=== PATIENT | female | born 1945 ===

== ENCOUNTER → 2018-02-23 | Day surgery (SDC) | payer OTHER | END | disposition home or self-care (01) | LOC: ADM 02-18 11:00 → AMB-ENDOS 06:57 | DX: K57.32 Diverticulitis of large intestine without perforation or abscess without bleeding (principal) ==

== ENCOUNTER 2021-03-27 11:00 | Emergency (ER) | payer OTHER ==
[~2021-03-27] VITALS: Ht 162.6 cm; Wt 72.6 kg
[2021-03-27] MEDS ORDERED: CRESTOR20 MG PO (11:07)
[2021-03-27] MEDS ORDERED: HUMALOG100 UNIT/2 (11:08)
[2021-03-27] MEDS ORDERED: VASOTEC20 M1 PO (11:08)
== END 2021-03-27 13:55 | disposition home or self-care (01) ==
LOC: ER 11:00
DX: S00.03XA Contusion of scalp, initial encounter (principal); M54.2 Cervicalgia; M62.838 Other muscle spasm; W01.198A Fall on same level from slipping, tripping and stumbling with subsequent striking against other object, initial encounter; Y93.E9 Activity, other interior property and clothing maintenance; Y92.018 Other place in single-family (private) house as the place of occurrence of the external cause; Y99.8 Other external cause status

== ENCOUNTER 2022-03-18 06:53 | Day surgery (SDC) | payer OTHER ==
[~2022-03-18 06:53] MED LIST: CRESTOR20 MG PO; HUMALOG100 UNIT/2; VASOTEC20 M1 PO
== END 2022-03-18 11:20 | disposition home or self-care (01) ==
LOC: AMB-ENDOS 06:53
PROVIDERS: ATTEND Colon & Rectal Surgery
DX: K63.5 Polyp of colon (principal); K57.90 Diverticulosis of intestine, part unspecified, without perforation or abscess without bleeding; I10 Essential (primary) hypertension; E11.9 Type 2 diabetes mellitus without complications; Z79.4 Long term (current) use of insulin; Z88.8 Allergy status to other drugs, medicaments and biological substances

== ENCOUNTER 2023-12-22 06:00 | Day surgery (SDC) | payer OTHER ==
[2023-12-22] MEDS ORDERED: FLUMAZENIL 0.5 MG/5 ML ML IV STA (08:29)
[2023-12-22] MEDS ORDERED: DIPHENHYDRAMINE HCL 50 MG/ML VIAL 1ML IV ONE (08:30)
[2023-12-22] MEDS ORDERED: ONDANSETRON HCL 2 MG/ML VIAL IV ONE (08:30)
[2023-12-22] MEDS ORDERED: MIDAZOLAM HCL 2 MG/2 ML VIAL IV ONE (08:30)
[2023-12-22] MEDS ORDERED: fentaNYL CITRATE 50 MCG/ML AMPUL IV PUSH ONE (08:30)
== END 2023-12-22 11:10 | disposition home or self-care (01) ==
LOC: AMB-ENDOS 06:00 → CIR.AMB 14:15
PROVIDERS: ATTEND Colon & Rectal Surgery
DX: K63.5 Polyp of colon (principal); K62.1 Rectal polyp; K57.30 Diverticulosis of large intestine without perforation or abscess without bleeding; Z88.6 Allergy status to analgesic agent